=== PATIENT | female | born 1985 | race Two or more races ===

== ENCOUNTER 2018-06-01 17:49 | Emergency (ER) | payer OTHER ==
[2018-06-01 18:35] LABS: Urine Blood 3+ (NEG); Urine Glucose NEGATIVE (NEG); Urine Protein TRACE (NEG); Urine pH 8.5 (5.0-7.0)
[2018-06-01] MEDS ORDERED: NA CHLORIDE 0.9% 1,000 ML ONE (19:08)
[2018-06-01 20:12] LABS: Absolute Lymphocytes (CBC) 2.1 K/uL (0.7-4.9); Absolute Monocytes 0.6 K/uL (0.1-1.3); Absolute Neutrophil 5.3 K/uL (1.8-8.0); Basophils % 0.8 % (0-1.3); Eosinophils % 1.4 % (0-4.4); Hematocrit 41.3 % (36.0-45.0); Lymphocytes % 25.4 % (15.3-44.8); MCH 30.6 pg (27.0-35.0); MCV 90.9 fL (80-100); MPV 8.9 fL (7.6-11.3); Monocytes % 7.1 % (3.3-12.3); RBC Red Blood Cell Count 4.55 M/uL (3.86-4.86)
--- NOTE | 2018-06-01 20:30 | RAD REPORT ---
EXAM DESCRIPTION: US - Transvaginal OB - 06/01/2018 7:16 pm CLINICAL HISTORY: with vaginal bleeding COMPARISON: None. FINDINGS: The uterus measures 10 x 6 x 6 centimeters. A gestational sac in the endometrium is not s een. Endometrial stripe 14 millimeter. A fibroid is not seen. The ovaries are normal in size and echotexture. No significant free fluid is seen. IMPRESSION: These findings could indicate an intrauterine in which the gestational sac is not seen secondary to early gestation. and even an ectopic can also have this appe arance. This all should be correlated clinically and with serial beta HCG levels. Followup endovagina l sonogram in 1 week would be helpful
[2018-06-01 20:55] LABS: BUN Blood Urea Nitrogen 9 mg/dL (7-18); Bicarbonate 28 mmol/L (21-32); Glucose Level 87 mg/dL (74-106); HCG, Quantitative 299 mIU/mL (1-3); Potassium 3.4 mmol/L (3.5-5.1); Sodium Level 139 mmol/L (136-145)
--- NOTE | 2018-06-01 21:01 | EDPHYS ---
Physician Documentation [facility] Name: Flakita Alba Age: 33 yrs Sex: Female : 1985 Arrival Date: 06/01/2018 Time: 17:53 Bed 24 Private MD: None, None ED Physician Jamal Duarte HPI: 06/01 18:49 This 33 yrs old Female presents to ER via Ambulatory with complaints of Vaginal kav Bleeding, + Preg <12wks. 18:49 The patient presents to the emergency department with abdominal pain, that started this kav morning. The estimated gestational age is 8 weeks. 18:50 course: care: none, Leakage of Fluid: none appreciated, Ultrasound: kav the patient has not had an ultrasound. 20:41 Previous pregnancies: in previous pregnancies patient has had . Associated kav signs and symptoms: Pertinent positives: nausea, Pertinent negatives: fever, vomiting. The patient has not experienced similar symptoms in the past. The patient has not recently seen a physician. 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 - Social history:: Smoking status: Patient/guardian denies using tobacco. - Ebola Screening: : Patient negative for fever greater than or equal to 101.5 degrees Fahrenheit, and additional compatible Ebola Virus Disease symptoms Patient denies exposure to infectious person Patient denies travel to an Ebola-affected area in the 21 days before illness onset No symptoms or risks identified at this time. - Family history:: not pertinent. - Hospitalizations: : No recent hospitalization is reported. - History obtained from: . ROS: 20:42 Constitutional: Negative for fever, chills, and weight loss, Eyes: Negative for injury, kav pain, redness, and discharge, ENT: Negative for injury, pain, and discharge, Neck: Negative for injury, pain, and swelling, Cardiovascular: Negative for chest pain, palpitations, and edema, Respiratory: Negative for shortness of breath, cough, wheezing, and pleuritic chest pain, Abdomen/GI: Negative for abdominal pain, nausea, vomiting, diarrhea, and constipation, Back: Negative for injury and pain, MS/Extremity: Negative for injury and deformity, Skin: Negative for injury, rash, and discoloration, Neuro: Negative for headache, weakness, numbness, tingling, and seizure, Psych: Negative for depression, anxiety, suicide ideation, homicidal ideation, and hallucinations, Allergy/Immunology: Negative for hives, rash, and allergies, Endocrine: Negative for neck swelling, polydipsia, polyuria, polyphagia, and marked weight changes, Hematologic/Lymphatic: Negative for swollen nodes, abnormal bleeding, and unusual bruising. 20:42 : Positive for vaginal bleeding, Negative for burning with urination. Exam: 20:42 Constitutional: This is a well developed, well nourished patient who is awake, alert, kav and in no acute distress. Head/Face: Normocephalic, atraumatic. Eyes: Pupils equal round and reactive to light, extra-ocular motions intact. Lids and lashes normal. Conjunctiva and sclera are non-icteric and not injected. Cornea within normal limits. Periorbital areas with no swelling, redness, or edema. ENT: Nares patent. No nasal discharge, no septal abnormalities noted. Tympanic membranes are normal and external auditory canals are clear. Oropharynx with no redness, swelling, or masses, exudates, or evidence of obstruction, uvula midline. Mucous membranes moist. Neck: Trachea midline, no thyromegaly or masses palpated, and no cervical lymphadenopathy. Supple, full range of motion without nuchal rigidity, or vertebral point tenderness. No Meningismus. Chest/axilla: Normal chest wall appearance and motion. Nontender with no deformity. No lesions are appreciated. Cardiovascular: Regular rate and rhythm with a normal S1 and S2. No gallops, murmurs, or rubs. Normal PMI, no JVD. No pulse deficits. Respiratory: Lungs have equal breath sounds bilaterally, clear to auscultation and percussion. No rales, rhonchi or wheezes noted. No increased work of breathing, no retractions or nasal flaring. Abdomen/GI: Soft, non-tender, with normal bowel sounds. No distension or tympany. No guarding or rebound. No evidence of tenderness throughout. Back: No spinal tenderness. No costovertebral tenderness. Full range of motion. Skin: Warm, dry with normal turgor. Normal color with no rashes, no lesions, and no evidence of cellulitis. MS/ Extremity: Pulses equal, no cyanosis. Neurovascular intact. Full, normal range of motion. Neuro: Awake and alert, GCS 15, oriented to person, place, time, and situation. Cranial nerves II-XII grossly intact. Motor strength 5/5 in all extremities. Sensory grossly intact. Cerebellar exam normal. Normal gait. Psych: Awake, alert, with orientation to person, place and time. Behavior, mood, and affect are within normal limits. 20:42 : Pelvic Exam: bimanual exam reveals os that is closed. Vital Signs: 17:58 BP 140 / 84; Pulse 78; Resp 19; Temp 98.6; Pulse Ox 100% on R/A; Weight 79.38 kg; aj Height 5 ft. 3 in. (160.02 cm); 18:00 BP 126 / 86; Pulse 72; Resp 18; Pulse Ox 100% on R/A; tl3 20:48 BP 123 / 67; Pulse 75; Resp 18; Pulse Ox 100% on R/A; Pain 0/10; mg2 17:58 Body Mass Index 31.00 (79.38 kg, 160.02 cm) aj MDM: 18:21 Medical screening is not applicable. [facility] 20:33 Data reviewed: vital signs, nurses notes, lab test result(s), radiologic studies, kav ultrasound. Awaiting: labs results. 06/01 18:21 Order name: Quantitative Hcg; Complete Time: 21:00 [facility] 06/01 18:21 Order name: Abo/rh Typing; Complete Time: 20:33 [facility] 06/01 18:21 Order name: Basic Metabolic Panel; Complete Time: 21:00 [facility] 06/01 18:21 Order name: CBC with Diff; Complete Time: 20:33 [facility] 06/01 18:29 Order name: Urine Dipstick--Ancillary (enter results); Complete Time: 19:25 bd 06/01 18:29 Order name: Urine --Ancillary (enter results); Complete Time: 19:25 bd 06/01 18:21 Order name: Urine Test (obtain specimen); Complete Time: 20:32 [facility] 06/01 18:21 Order name: Labs collected and sent; Complete Time: 20:32 [facility] 06/01 18:21 Order name: NPO; Complete Time: 20:32 [facility] 06/01 18:21 Order name: Urine Dipstick-Ancillary (obtain specimen); Complete Time: 20:32 [facility] 06/01 19:15 Order name: Transvaginal OB; Complete Time: 20:31 EDMS Administered Medications: 20:49 Not Given (no iv access): NS 0.9% 1000 ml IV at 1 bolus Per protocol; 1000 mL bolus mg2 Point of Care Testing: Urine : 21:26 hCG Reading: Positive; mg2 Disposition: 06/01/18 21:01 Discharged to Home. Impression: related conditions, unspecified, Abnormal uterine and vaginal bleeding, unspecified. - Condition is Stable. - Discharge Instructions: First Trimester of , [id number], Abnormal Uterine Bleeding, [id number]. - Medication Reconciliation Form, Thank You Letter form. - Follow up: Mini Rekhi; When: 1 - 2 days; Reason: Recheck today's complaints, Continuance of care, Re-evaluation by your physician. - Problem is new. - Symptoms have improved. - Notes: Please make an appointment with your OBGYN/Dr. Mayo for Serial Beta HCG Levels \T\amp; Follow-up endovaginal sonogram in 1 week Addendum: 06/03/2018 07:06 Co-signature as Attending Physician, Jamal Duarte MD. r n Signatures: Dispatcher [employer] [facility] Nohemi Montalvo RN Yu Hardy, JOB PLACEMENT COUNSELOR JOB PLACEMENT COUNSELOR Jamal Joseph MD MD rn Gardose, Michele, RN RN mg2 Corrections: (The following items were deleted from the chart) 06/01 19:15 18:23 Transvaginal Study (Probe)+US.RAD.TERESAZ ordered. [facility] 21:26 21:01 06/01/2018 21:01 Discharged to Home. Impression: related conditions, mg2 unspecified; Abnormal uterine and vaginal bleeding, unspecified. Condition is Stable. Discharge Instructions: First Trimester of , [id number], Abnormal Uterine Bleeding, [id number]-[id number]. Forms are Medication Reconciliation Form, Thank You Letter, Antibiotic Education, Prescription Opioid Use. Follow up: Mini Rekhi; When: 1 - 2 days; Reason: Recheck today's complaints, Continuance of care, Re-evaluation by your physician. Problem is new. Symptoms have improved. [email or web address]
--- NOTE | 2018-06-01 21:01 | ER ---
Nurse's Notes [facility] Name: Flakita Alba Age: 33 yrs Sex: Female : 1985 Arrival Date: 06/01/2018 Time: 17:53 Bed 24 Private MD: None, None Diagnosis: related conditions, unspecified;Abnormal uterine and vaginal bleeding, unspecified Presentation: 06/01 17:57 Presenting complaint: Patient states: Vaginal bleeding since last night with clots. aj Transition of care: patient was not received from another setting of care. Onset of symptoms was May 31, 2018. Risk Assessment: Do you want to hurt yourself or someone else? Patient reports no desire to harm self or others. Initial Sepsis Screen: Does the patient meet any 2 criteria? No. Patient's initial sepsis screen is negative. Does the patient have a suspected source of infection? No. Patient's initial sepsis screen is negative. Care prior to arrival: None. 17:57 Method Of Arrival: Ambulatory aj 17:57 Acuity: ALBERTO 3 aj Triage Assessment: 17:58 General: Appears in no apparent distress. comfortable, Behavior is calm, cooperative, aj appropriate for age. Pain: Denies pain. Neuro: Level of Consciousness is awake, alert, obeys commands, Oriented to person, place, time, situation, Appropriate for age. Respiratory: Airway is patent Respiratory effort is even, unlabored, Respiratory pattern is regular, symmetrical. : Reports vaginal bleeding that is with clots, moderate flow. Derm: Skin is intact, is healthy with good turgor, Skin is pink, warm \T\ dry. normal. 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 - Social history:: Smoking status: Patient/guardian denies using tobacco. - Ebola Screening: : Patient negative for fever greater than or equal to 101.5 degrees Fahrenheit, and additional compatible Ebola Virus Disease symptoms Patient denies exposure to infectious person Patient denies travel to an Ebola-affected area in the 21 days before illness onset No symptoms or risks identified at this time. - Family history:: not pertinent. - Hospitalizations: : No recent hospitalization is reported. - History obtained from: . Screenin:00 Abuse screen: Denies threats or abuse. Nutritional screening: No deficits noted. tl3 Tuberculosis screening: No symptoms or risk factors identified. Fall Risk None identified. Assessment: 18:00 General: Appears in no apparent distress. comfortable, slender, well groomed, well tl3 developed, well nourished, Behavior is calm, cooperative, appropriate for age. Pain: Complains of pain in right lower quadrant and left lower quadrant Quality of pain is described as crampy. Neuro: Level of Consciousness is awake, alert, obeys commands, Oriented to person, place, time, situation, Appropriate for age. Cardiovascular: Patient's skin is warm and dry. Respiratory: Airway is patent Respiratory effort is even, unlabored, Respiratory pattern is regular, symmetrical. GI: No signs and/or symptoms were reported involving the gastrointestinal system. : Reports vaginal bleeding that is bright red, light flow, since yesterday. : Reports pt reports being , confirmed by POC hCG positive urine test, has not seen OB but does have an appointment. EENT: No signs and/or symptoms were reported regarding the EENT system. Derm: No signs and/or symptoms reported regarding the dermatologic system. 19:47 Reassessment: Patient appears in no apparent distress at this time. No changes from tl3 previously documented assessment. Patient and/or family updated on plan of care and expected duration. Pain level reassessed. Patient is alert, oriented x 3, equal unlabored respirations, skin warm/dry/pink. lab at bedside to obtain labs. 20:33 Reassessment: Patient appears in no apparent distress at this time. No changes from tl3 previously documented assessment. Patient and/or family updated on plan of care and expected duration. Pain level reassessed. Patient is alert, oriented x 3, equal unlabored respirations, skin warm/dry/pink. Awaiting lab reports. 21:25 Obstetrical Assessment: General assessment: awake and alert, skin warm and dry. mg2 Vital Signs: 17:58 BP 140 / 84; Pulse 78; Resp 19; Temp 98.6; Pulse Ox 100% on R/A; Weight 79.38 kg; aj Height 5 ft. 3 in. (160.02 cm); 18:00 BP 126 / 86; Pulse 72; Resp 18; Pulse Ox 100% on R/A; tl3 20:48 BP 123 / 67; Pulse 75; Resp 18; Pulse Ox 100% on R/A; Pain 0/10; mg2 17:58 Body Mass Index 31.00 (79.38 kg, 160.02 cm) aj Vitals: 21:25 Heart Tones not done. mg2 ED Course: 17:53 Patient arrived in ED. mr 17:53 None, None is Private Physician. mr 17:57 Pilar Eller, RN is Primary Nurse. tl3 17:58 Triage completed. aj 17:58 Arm band placed on left wrist. Patient placed in an exam room, on a stretcher. aj 18:00 Patient has correct armband on for positive identification. Bed in low position. Call tl3 light in reach. Adult w/ patient. Pulse ox on. NIBP on. Warm blanket given. 18:00 No provider procedures requiring assistance completed. Initial lab(s) drawn, by mo, tl3 Urine collected: clean catch specimen, blood tinged, Amount Voided: 50mL. 18:21 [facility]rain [facility] kav 18:21 Jamal Duarte MD is Attending Physician. kav 18:33 Radiology exam delayed due to lab results not completed at this time. (HCG). hr 19:14 Ultrasound completed. Patient tolerated well. hr 19:15 Transvaginal OB In Process Unspecified. EDMS 19:47 Missed attempt(s): 20 gauge in right in left antecubital area. tl3 21:01 Anna Pollard MD is Referral Physician. kav 21:25 Patient did not have IV access during this emergency room visit. mg2 Administered Medications: 20:49 Not Given (no iv access): NS 0.9% 1000 ml IV at 1 bolus Per protocol; 1000 mL bolus mg2 Point of Care Testing: Urine : 21:26 hCG Reading: Positive; mg2 Outcome: 21:01 Discharge ordered by . kav 21:25 Discharged to home ambulatory, with family. mg2 21:25 Discharged to 21:25 Condition: stable 21:25 Discharge instructions given to patient, family, Instructed on discharge instructions, follow up and referral plans. Demonstrated understanding of instructions, follow-up care. 21:26 Patient left the ED. mg2 Signatures: Dispatcher [employer] EDNohemi Castro, RN RN Yu Rodriguez, COMMUNITY CENTER COORDINATOR COMMUNITY CENTER COORDINATOR Palak Suresh mr Serge, CaitiePilar Henry RN RN tl3 Jay Quesada RN RN mg2
== END 2018-06-01 21:26 | disposition home or self-care (01) ==
LOC: ER 17:49
DX: O46.91 Antepartum hemorrhage, unspecified, first trimester (principal); Z3A.00 Weeks of gestation of pregnancy not specified
CPT/HCPCS: 36415; 76817; 80048; 81003; 81025; 84702; 85025; 86900; 86901; 99284; J7030

== ENCOUNTER 2019-05-16 00:33 | Inpatient (IN) | payer OTHER ==
[2019-05-16] MEDS ORDERED: BUTORPHANOL 1 MG/ML INJ IV PRN (07:37)
[2019-05-16] MEDS ORDERED: CARBOPROST TROME 250 MCG/ML IM PRN (07:37)
[2019-05-16] MEDS ORDERED: Ringers Lactate 1,000 ML IV PRN (07:37)
[2019-05-16] MEDS ORDERED: PROMETHAZINE 25 MG/ML VIAL IV PRN (07:37)
[2019-05-16] MEDS ORDERED: METHYLERGONOVINE 0.2MG/ML AMP IM ONE (07:44)
[2019-05-16] MEDS ORDERED: OXYTOCIN/LR 20 UNIT/1,000 ML BAG IV SCH (08:00)
[2019-05-16] MEDS ORDERED: Ringers Lactate 1,000 ML IV SCH (08:00)
[2019-05-16 08:16] LABS: Absolute Lymphocytes (CBC) 1.9 K/uL (0.7-4.9); Basophils % 0.3 % (0-1.3); Hematocrit 36.1 % (36.0-45.0); Lymphocytes % 25.9 % (15.3-44.8)
[2019-05-16 08:53] LABS: Urine Appearance CLEAR; Urine Bilirubin NEGATIVE (NEG); Urine Blood NEGATIVE (NEG); Urine Color YELLOW; Urine Glucose NEGATIVE (NEG); Urine Protein NEGATIVE (NEG)
[2019-05-16 08:55] LABS: Urine Microscopic Reflex NO UMIC
[2019-05-16] MEDS ORDERED: FENTANYL CITR 100 MCG/2 ML IV ONE (11:20)
[2019-05-16] MEDS ORDERED: ROPIVACAINE HCL 100 ML IV PRN (11:20)
[2019-05-16] MEDS ORDERED: LIDOCAINE 1% 20 ML MDV ONE (11:50)
[2019-05-16] MEDS ORDERED: ROPIVACAINE HCL 0.2% 20ML AMP IV SCH (12:00)
[2019-05-16] MEDS ORDERED: ACETAMINOPHEN 500 MG TAB PO PRN (12:34)
[2019-05-16] MEDS ORDERED: DOCUSATE NA/SENNA CONC 1 TAB PO PRN (12:34)
[2019-05-16] MEDS ORDERED: IBUPROFEN 200 MG TAB PO PRN (12:34)
[2019-05-16] MEDS ORDERED: METHYLERGONOVINE 0.2 MG TAB PO PRN (12:34)
[2019-05-16] MEDS ORDERED: ONDANSETRON 4 MG (ODT) TAB PO PRN (12:34)
[2019-05-16] MEDS ORDERED: Oxycodone HCl/Acetaminophen 1 TAB TAB PO PRN (12:34)
[2019-05-16] MEDS ORDERED: BISACODYL 10 MG RECTAL SUPP RECT PRN (12:34)
[2019-05-16] MEDS ORDERED: OXYTOCIN 10 UNIT/ML ML IV ONE (14:27)
[2019-05-16 15:00] VITALS: BMI 33.8
[2019-05-16 19:08] LABS: RPR (Rapid Plasma Reagin) NON-REACT (NON-REACT)
--- NOTE | 2019-05-16 21:44 | P.OP ---
Date of Service: 05/16/19 Findings and Operative Technique FINDINGS: Female fetus in IAIN position, APGARS of 9/9 at 1 and 5 minutes respectively, weight of 7 lb 4 oz, clear amniotic fluid. Nuchal cord x1. Normal appearing placenta. First degree midline laceration. Stage I: 2h 25 min ; Stage II: 9 min. HISTORY OF PRESENT ILLNESS: The patient is a 33-year-old female who is a at 39 weeks who was admitted for an elective induction of labor. She had adequate care and was complicated by . Labs were normal and she had otherwise routine care. On admission, she was noted to be 2 cm. She denied complaints and noted positive movement. PROCEDURE DETAILS: The patient was admitted to Labor and Delivery for induction , which was done with pitocin. She requested an epidural for pain control, which was placed with good result. AROM was done, with clear fluid noted. Labor progressed normally. She had a spontaneous vaginal delivery of a live born female with clear fluid from an TIMA position over an intact perineum at 12:17. After controlled delivery of the head, the shoulders and body followed without difficulty. Bulb suctioning was done. The infant was placed on the patient's abdomen for skin to skin contact. The cord was clamped and cut. Findings as stated above. There was no depression. Infant was crying, vigorous, and moving all extremities. Spontaneous delivery of an intact placenta with a three-vessel cord was noted at 12:21. On examination, there was 1st degree midline laceration. It was repaired by placing a figure of 8 using 2-0 vicryl. On vaginal exam, there were no noted cervical or vaginal sidewall lacerations. Patient tolerated procedure well and there were no complications. Estimated blood loss was ~200 cc. Mother and infant are in recovery doing well at this time.
[2019-05-17 04:24] LABS: Absolute Lymphocytes (CBC) 2.2 K/uL (0.7-4.9); Basophils % 0.4 % (0-1.3); Hematocrit 34.3 % (36.0-45.0); Lymphocytes % 22.2 % (15.3-44.8); MPV 9.9 fL (7.6-11.3)
[2019-05-17 14:02] VITALS: BP 122/59; TEMP 97.4
[2019-05-19 04:13] LABS: HBsAG Nonreactive (Nonreactive)
--- NOTE | 2019-05-21 15:40 | P.DS ---
Admission Date: 05/16/19 Discharge Date: 05/17/19 Disposition: ROUTINE DISCHARGE Discharge Condition: GOOD Brief History of Present Illness: 33-year-old 002 admitted at 39 weeks gestation for elective induction of labor. Induction accomplished via Pitocin and rupture of membranes. GBS was negative. Hospital Course: Patient did well following delivery. Her pain is been minimal. She has had ibuprofen primarily for pain management. She is doing well. Denies any issues at this time. Bonding well with the baby. Tolerating a regular diet. Voiding without difficulty. Ambulating well. No issues with urinary discomfort. Passing flatus. Vital Signs/Physical Exam: Temp Pulse Resp BP Pulse Ox 97.4 F 65 18 122/59 L 98 05/17/19 12:50 05/17/19 12:50 05/17/19 12:50 05/17/19 12:50 05/17/19 07:50 General: Alert, In no apparent distress, Oriented x3 HEENT: Atraumatic Neck: Supple Respiratory: Normal air movement Cardiovascular: No edema, Normal pulses Gastrointestinal: Soft and benign, Non-distended Musculoskeletal: No clubbing, No swelling Integumentary: No rashes Neurological: Normal gait, Normal speech External genitalia: No edema, No lesions Laboratory Data at Discharge: WBC 9.7 K/uL (4.3-10.9) D 05/17/19 04:06 Hgb 11.9 g/dL (12.0-15.0) L 05/17/19 04:06 Hct 34.3 % (36.0-45.0) L 05/17/19 04:06 Plt Count 246 K/uL (152-406) 05/17/19 04:06 Home Medications: Aspirin [Aspirin EC 81 MG] 1 tab PO DAILY 05/16/19 Pnv73/Iron,Carb&Glu/FA/Dss/Dha [Citranatal Assure Combo Pack] 1 tab PO DAILY Diet: Regular Activity: No lifting more than 10 lbs Followup: Nestor Pollard DO [ACTIVE - CAN ADMIT] - 1-2 Weeks (Please follow up with Dr. Pollard for your appt in 4 weeks. )
== END 2019-05-17 15:50 | disposition home or self-care (01) | DRG 807 ==
LOC: 2ND-WC 07:19
PROVIDERS: ADMIT Student in an Organized Health Care Education/Training Program; ATTEND Student in an Organized Health Care Education/Training Program
PROC: 10E0XZZ Delivery of Products of Conception, External Approach (ICD-10-PCS; principal; 2019-05-16)
PROC: 0HQ9XZZ Repair Perineum Skin, External Approach (ICD-10-PCS; 2019-05-16)
PROC: 3E033VJ Introduction of Other Hormone into Peripheral Vein, Percutaneous Approach (ICD-10-PCS; 2019-05-16)
DX: O69.81X0 Labor and delivery complicated by cord around neck, without compression, not applicable or unspecified (principal); Z37.0 Single live birth; Z3A.39 39 weeks gestation of pregnancy; O70.0 First degree perineal laceration during delivery
CPT/HCPCS: 36415; 81003; 85025; 86592; 86901; 87340; J2210; J2590; J2795